=== PATIENT | male | born 1975 | race Caucasian/White ===

== ENCOUNTER 2017-11-18 13:54 | Inpatient (IN) ==
[2017-11-18 14:16] LABS: Basophils # 0.1 K/mcL (0.0-0.2); Basophils % 0.4 %; Eosinophils # 0.6 K/mcL (0.0-0.6); Hematocrit 50.9 % (37.5-50.1); Hemoglobin 17.2 g/dL (12.9-16.9); Immature Granulocytes % 0.6 % (0-4); Lymphocytes # 3.6 K/mcL (0.6-4.6); Lymphocytes % 31.3 %; Mean Corpuscular HGB Conc 33.8 g/dL (31.6-35.5); Mean Corpuscular Volume 91.7 fL (83.0-100.0); Mean Platelet Volume 10.4 fL (9.4-12.4); Monocytes # 0.7 K/mcL (0.0-1.3); Monocytes % 6.4 %; Neutrophils # 6.5 K/mcL (1.6-8.9); Platelet Count 290 K/mcL (140-400); Red Blood Count 5.55 M/mcL (4.19-5.50); Red Cell Distribution Width 13.2 % (11.5-14.5); Segmented Neutrophils % 56.3 %
[2017-11-18 14:22] LABS: Bilirubin,Urine Negative (Negative); Blood,Urine Negative (Negative); Clarity,Urine Clear (Clear); Color,Urine Yellow (Yellow); Glucose,Urine (UA) Normal (Normal); Ketones,Urine Negative (Negative); Leukocyte Esterase,Urine Negative (Negative); Nitrite,Urine Negative (Negative); PH,Urine 5.5 pH Units (5.0-8.0); Protein,Urine Negative (Neg-Trace); Specific Gravity,Urine 1.029 (1.010-1.025); Urobilinogen,Urine Normal (Normal)
[2017-11-18 14:28] LABS: Amphetamine Screen,Urine Negative ng/mL (Cutoff=1000); Barbiturate Screen,Urine Negative ng/mL (Cutoff=200); Benzodiazepines Screen,Urine Negative ng/mL (Cutoff=200); Cannabinoid Screen,Urine Negative ng/mL (Cutoff = 50); Cocaine Screen,Urine Negative ng/mL (Cutoff= 300); Opiate Screen,Urine Negative ng/mL (Cutoff=300); Phencyclidine Screen,Urine Negative ng/mL (Cutoff=25)
--- NOTE | 2017-11-18 14:28 | Emergency Department Note ---
Disposition Clinical Impression: Suicidal ideation, Homicidal ideation, Hallucination Depression Qualifiers: Depression Type: unspecified Qualified Code(s): F32.9 - Major depressive disorder, single episode, unspecified Disposition: Admitted As Inpatient Condition: Fair Time of Disposition: 17:18 Psych HPI - General Chief Complaint: ED Psychiatric Symptoms Stated Complaint: SI/HI Time Seen by Provider: 11/18/17 13:56 Source: patient Mode of arrival: ambulatory Limitations: no limitations Nursing Notes Reviewed: Yes Vital Signs Reviewed: Yes - History of Present Illness HPI Narrative: 42-year-old male with history of depression presents complaining of suicidal or homicidal ideations, he is having auditory hallucinations hearing voices that are telling him to kill his [employer]. Patient also stating that he has had suicidal ideation without a definitive plan, he was previous on depression medication but is noncompliant for about a year. He does not follow psychiatry has not previously been evaluated at a psychiatric hospital. Patient did call his sister, stated that he was upset she thinks is having "an emotional breakdown" he states is her voice in the past but never told anybody, lately the voices have been given him specific messages, he denies visual hallucinations. Denies compulsions. Denies fever, chills, headache, chest pain , abdominal pain. Pt complaint: suicidal ideation Onset (ago): minute(s) Duration: intermittent History of similar episodes: No Improves with: none Worsens with: none Alleged intoxication: No Associated Psychiatric Symptoms: suicidal ideation, homicidal ideation, auditory hallucinations Associated symptoms: Reports: denies other symptoms Traumatic symptoms: denies traumatic injury Treatments prior to arrival: none Self harm or harm to others: admits thoughts of self harm, admits thoughts of harming others - Related Data Home Medications Medication Instructions Recorded Confirmed No Known Home Drugs 11/18/17 11/18/17 Allergies Allergy/AdvReac Type Severity Reaction Status Date / Time acetaminophen [From Vicodin] Allergy Agitated Verified 08/22/16 08:09 aspirin Allergy Seizure Verified 08/22/16 08:09 hydrocodone [From Vicodin] Allergy Agitated Verified 08/22/16 08:09 morphine Allergy Anaphylaxis Verified 08/22/16 08:09 sulfamethoxazole Allergy Hives Verified 08/22/16 08:09 [From Bactrim] trimethoprim [From Bactrim] Allergy Hives Verified 08/22/16 08:09 All systems ED: reviewed and negative except as stated. Review of Systems: As Per HPI Constitutional: Denies: fever Eyes: Denies: eye pain ENT ED: Denies: ear pain Cardiovascular: Denies: chest pain Respiratory: Denies: cough Gastrointestinal: Denies: abdominal pain, nausea Genitourinary: Denies: urgency Musculoskeletal: Denies: back pain Integumentary: Denies: rash Neurological: Denies: headache Psychiatric: Reports: as per HPI, anxiety, depression, suicidal thoughts, homicidal thoughts, auditory hallucinations Endocrine: Denies: fatigue Hematological/Lymphatic: Denies: easy bleeding Past Medical History - Past Medical History Attestation: Yes The following information was validated with the patient. Source: patient Medical history: Reports: no medical history Psychiatric history: Reports: anxiety, depression - Social History Smoking Status: Current every day smoker Smokeless Tobacco Status: No Alcohol use: Reports: none Drug use: Reports: none Physical Exam - General Limitations: no limitations General appearance: alert, in no apparent distress - Head Head exam: atraumatic - Eye Eye exam: Present: normal appearance, PERRL - ENT ENT exam: normal exam, normal oropharynx - Neck Neck exam: Present: normal inspection - Chest Chest inspection: Present: normal inspection - Respiratory Respiratory exam: Present: normal lung sounds bilaterally. Absent: respiratory distress - Cardiovascular Cardiovascular exam: Present: regular rate, normal rhythm - Abdominal Exam Abdominal exam: Present: soft, Non-Tender - Extremities Exam Extremities exam: Present: normal inspection, full ROM - Neurological Exam Neurological exam: Present: alert, oriented X3, CN II-XII intact, normal gait. Absent: motor sensory deficit - Psychiatric Psychiatric exam: Present: depressed, flat affect, homicidal ideation, suicidal ideation Course Course Narrative: 42-year-old male with suicidal, homicidal ideations and auditory hallucinations with thoughts of killing his boss, hearing voices, the patient was placed on the 72 hour hold pink slipped, plan is for psychiatric evaluation for medical clearance. - Reevaluation(s) Reevaluation #1: he was medically cleared and evaluated by the psychiatric team, plan is for inpatient admission for hallucinations, likely psychosis, formation depressive disorder with psychotic features, the patient stable, pink slipped, admitted to psychiatry Dr. Montanez Time: 17:19 Vital Signs Temperature 97.6 F 11/18/17 13:56 Pulse Rate 83 11/18/17 13:56 Respiratory Rate 18 11/18/17 13:56 Blood Pressure 166/101 11/18/17 13:56 O2 Sat by Pulse Oximetry 97 11/18/17 13:56 Temperature 97.6 F 11/18/17 13:56 Pulse Rate 78 11/18/17 14:24 Respiratory Rate 18 11/18/17 14:24 Blood Pressure 118/92 11/18/17 14:24 O2 Sat by Pulse Oximetry 78 11/18/17 14:24 Oxygen Delivery Oxygen Delivery Room Air Psych - Differential Diagnosis Likely: acute psychosis, chronic psychiatric disease, suicidal ideation, bipolar disorder - Lab Data Lab results reviewed: Yes I reviewed the patient's lab results. Result diagrams: 11/18/17 14:09 11/18/17 14:09 Lab Results 11/18/17 11/18/17 11/18/17 Range/Units 14:09 14:09 14:10 WBC 11.6 H (4.3-11.1) K/mcL RBC 5.55 H (4.19-5.50) M/mcL Hgb 17.2 H (12.9-16.9) g/dL Hct 50.9 H (37.5-50.1) % MCV 91.7 (83.0-100.0) fL MCH 31.0 (28.0-33.3) pg MCHC 33.8 (31.6-35.5) g/dL RDW 13.2 (11.5-14.5) % Plt Count 290 (140-400) K/mcL MPV 10.4 (9.4-12.4) fL Immature Gran % 0.6 (0-4) % Seg Neutrophils % 56.3 % Lymphocytes % 31.3 % Monocytes % 6.4 % Eosinophils % 5.0 % Basophils % 0.4 % Neutrophils # 6.5 (1.6-8.9) K/mcL Lymphocytes # 3.6 (0.6-4.6) K/mcL Monocytes # 0.7 (0.0-1.3) K/mcL Eosinophils # 0.6 (0.0-0.6) K/mcL Basophils # 0.1 (0.0-0.2) K/mcL Sodium 136 (136-145) mEq/L Potassium 3.8 (3.5-5.1) mEq/L Chloride 106 (98-107) mEq/L Carbon Dioxide 21 L (23-29) mEq/L BUN 17 (6-20) mg/dL Creatinine 1.04 (0.70-1.30) mg/dL Est GFR ( Amer) > 60 (> 60) Est GFR (Non-Af Amer) > 60 (> 60) BUN/Creatinine Ratio 16 (6-26) Glucose 119 H (70-105) mg/dL Calculated Osmolality 285 (280-300) Calcium 9.5 (8.6-10.3) mg/dL Urine Color Yellow (Yellow) Urine Clarity Clear (Clear) Urine pH 5.5 (5.0-8.0) pH Units Ur Specific [place] 1.029 H (1.010-1.025) Urine Protein Negative (Neg-Trace) mg/dL Urine Glucose (UA) Normal (Normal) mg/dL Urine Ketones Negative (Negative) mg/dL Urine Blood Negative (Negative) Urine Nitrite Negative (Negative) Urine Bilirubin Negative (Negative) Urine Urobilinogen Normal (Normal) mg/dL Ur Leukocyte Esterase Negative (Negative) Salicylates < 5.0 L (15.0-30.0) mg/dL Urine Opiates Screen (Ekwnma=727) ng/mL Acetaminophen < 1.0 L (10-30) mcg/mL Ur Barbiturates Screen (Lokqvd=668) ng/mL Ur Phencyclidine Scrn (Cutoff=25) ng/mL Ur Amphetamines Screen (Xdixda=7991) ng/mL U Benzodiazepines Scrn (Dwlfog=347) ng/mL Urine Cocaine Screen (Cutoff= 300) ng/mL U Marijuana (THC) Screen (Cutoff = 50) ng/mL Ethyl Alcohol < 10 (0-10) mg/dL 11/18/17 Range/Units 14:10 WBC (4.3-11.1) K/mcL RBC (4.19-5.50) M/mcL Hgb (12.9-16.9) g/dL Hct (37.5-50.1) % MCV (83.0-100.0) fL MCH (28.0-33.3) pg MCHC (31.6-35.5) g/dL RDW (11.5-14.5) % Plt Count (140-400) K/mcL MPV (9.4-12.4) fL Immature Gran % (0-4) % Seg Neutrophils % % Lymphocytes % % Monocytes % % Eosinophils % % Basophils % % Neutrophils # (1.6-8.9) K/mcL Lymphocytes # (0.6-4.6) K/mcL Monocytes # (0.0-1.3) K/mcL Eosinophils # (0.0-0.6) K/mcL Basophils # (0.0-0.2) K/mcL Sodium (136-145) mEq/L Potassium (3.5-5.1) mEq/L Chloride (98-107) mEq/L Carbon Dioxide (23-29) mEq/L BUN (6-20) mg/dL Creatinine (0.70-1.30) mg/dL Est GFR ( Amer) (> 60) Est GFR (Non-Af Amer) (> 60) BUN/Creatinine Ratio (6-26) Glucose (70-105) mg/dL Calculated Osmolality (280-300) Calcium (8.6-10.3) mg/dL Urine Color (Yellow) Urine Clarity (Clear) Urine pH (5.0-8.0) pH Units Ur Specific [place] (1.010-1.025) Urine Protein (Neg-Trace) mg/dL Urine Glucose (UA) (Normal) mg/dL Urine Ketones (Negative) mg/dL Urine Blood (Negative) Urine Nitrite (Negative) Urine Bilirubin (Negative) Urine Urobilinogen (Normal) mg/dL Ur Leukocyte Esterase (Negative) Salicylates (15.0-30.0) mg/dL Urine Opiates Screen Negative (Wvbpbw=961) ng/mL Acetaminophen (10-30) mcg/mL Ur Barbiturates Screen Negative (Lamful=421) ng/mL Ur Phencyclidine Scrn Negative (Cutoff=25) ng/mL Ur Amphetamines Screen Negative (Gpxywj=0437) ng/mL U Benzodiazepines Scrn Negative (Yfwsxp=499) ng/mL Urine Cocaine Screen Negative (Cutoff= 300) ng/mL U Marijuana (THC) Screen Negative (Cutoff = 50) ng/mL Ethyl Alcohol (0-10) mg/dL Psychiatric Medical Clearance - Medical Clearance Checklist Does the patient have a NEW psychiatric condition?: Yes Any abnormalities indicating possible medical illness?: No Any history of medical issues?: No Medical History: Biceps muscle strain (Inactive) No Social History Section defined Any abnormal vital signs prior to transfer?: No Current Vitals: Last Vital Signs Temp 97.6 F 11/18/17 13:56 Pulse 78 11/18/17 14:24 Resp 18 11/18/17 14:24 BP 118/92 11/18/17 14:24 Pulse Ox 78 11/18/17 14:24 Is the patient intoxicated or cognitively impaired?: No Psychiatric Lab Panel: Drug Levels and Toxicity 11/18/17 11/18/17 14:09 14:10 Urine Opiates Screen Negative Acetaminophen < 1.0 L Ur Barbiturates Screen Negative Ur Phencyclidine Scrn Negative Ur Amphetamines Screen Negative U Benzodiazepines Scrn Negative Urine Cocaine Screen Negative U Marijuana (THC) Screen Negative Ethyl Alcohol < 10 Any abnormalities on the physical exam?: No Any abnormal labs?: No Abnormal Labs: Abnormal lab results WBC 11.6 K/mcL (4.3-11.1) H 11/18/17 14:09 RBC 5.55 M/mcL (4.19-5.50) H 11/18/17 14:09 Hgb 17.2 g/dL (12.9-16.9) H 11/18/17 14:09 Hct 50.9 % (37.5-50.1) H 11/18/17 14:09 Carbon Dioxide 21 mEq/L (23-29) L 11/18/17 14:09 Glucose 119 mg/dL (70-105) H 11/18/17 14:09 Ur Specific [place] 1.029 (1.010-1.025) H 11/18/17 14:10 Salicylates < 5.0 mg/dL (15.0-30.0) L 11/18/17 14:09 Acetaminophen < 1.0 mcg/mL (10-30) L 11/18/17 14:09 Does the patient require durable medical equiptment?: No Is the patient ambulatory?: Yes Is the patient a fall risk?: No Has the patient been medically cleared?: Yes Any acute medical condition require Tx prior to transfer?: No Statement of Medical Clearance: I have evaluated the patient, reviewed diagnostic information, and certify that the patient's medical condition is sufficiently stable that transfer to the psychiatric unit does not pose a significant risk of deterioration. Attestation Statement - Attestation Attestation: I, Viktor Nelson DO, examined this patient [id number] and my medical decision-making was reviewed with Dr. Mike Waldron, Resident Physician. I agree with the documented findings, disposition and treatment plan as described except to the extent set forth below. Please see my progress notes for details. 42-year-old male presents to emergency room with homicidal thoughts. Patient says a voices inside of his had been telling him to kill his old boss. He does not actively have a plan to kill himself. Patient does have plan to kill his boss. Patient has a psychiatric history that he has not been medicated for quite a long time. Vital signs were stable. Physical exam is unremarkable. Medical clearance to be completed at the request of the patient and the family. Patient will be seen by psychiatric team once workup is established. See detailed documentation of physical exam no medical intervention, medical decision-making and disposition and the resident physician's note. Patient does not require any medical intervention at this time we will continue monitor treatment course is completed 1644 Patient accepted to our facility for psychiatric evaluation.
[2017-11-18 14:35] LABS: Acetaminophen < 1.0 mcg/mL (10-30); Ethanol < 10 mg/dL (0-10); Salicylate < 5.0 mg/dL (15.0-30.0)
[2017-11-18 14:37] LABS: BUN/Creatinine Ratio 16 (6-26); Blood Urea Nitrogen 17 mg/dL (6-20); Calcium 9.5 mg/dL (8.6-10.3); Carbon Dioxide 21 mEq/L (23-29); Chloride 106 mEq/L (98-107); Glucose 119 mg/dL (70-105); Osmolality,Calculated 285 (280-300); Potassium 3.8 mEq/L (3.5-5.1); Sodium 136 mEq/L (136-145); eGFR For African Americans > 60 (> 60); eGFR For Non-African Americans > 60 (> 60)
[2017-11-18] MEDS ORDERED: Mag Hydrox/Al Hydrox/Simeth 30 ML UDC PO PRN (18:22)
[2017-11-18] MEDS ORDERED: MOM Conc 10 ML UD.LIQ PO PRN (18:22)
[2017-11-18] MEDS ORDERED: hydrOXYzine pamoate 25 MG CAPSULE PO PRN (18:22)
[2017-11-18] MEDS ORDERED: *HR* LORazepam 2 MG/ML VIAL IM PRN (18:22)
[2017-11-18] MEDS ORDERED: traZODone 50 MG TABLET PO PRN (18:22)
[2017-11-18] MEDS ORDERED: Haloperidol Lactate 5 MG/ML VIAL IM PRN (18:22)
[2017-11-18] MEDS ORDERED: *HR* LORazepam 1 MG TABLET PO PRN (18:22)
[2017-11-18] MEDS: Nicotine 21 MG PATCH.TD24 TD SCH (20:45)
[2017-11-19] MEDS: Nicotine 21 MG PATCH.TD24 TD SCH (08:42)
--- NOTE | 2017-11-19 15:55 | Psychiatry History & Physical ---
Date of Encounter: 11/19/17 Time of Encounter: 15:35 History of Present Illness Patient Stated Chief Complaint: "I've been under a lot of stress". Medicare Admission Attestation: For traditional Medicare patients the provided hospital inpatient services are reasonable and necessary and in the case of services not specified as inpatient -only under 42 CFR 419.22 (n), that they are appropriately provided as inpatient services in accordance 42 CFR 412.3. For Critical Access Hospital the patient may reasonably be expected to be discharged or transferred to a hospital within 96 hours after admission to the Critical Access Hospital. Admitted From: Emergency Dept Plans for Post Hospital Care: Home History of Present Illness: Mr. Henry is a 42 year old male patient comes in to talk to me for intake interview. I ask him what has been going on? He tells me "I have been under a lot of stress lately and I do not know how to deal with it". He tells me that he has been depressed. He states that he lost his job in August, than lost his unemployment benefits. It is currently under appeal and he has an interview Thursday, which he will probably win because he says his previous boss lied and he has proof. He believes he will get his benefits and money back. He has been having financial problems and getting behind on bills "which is not me". He states that he is feeling anxious not knowing how he is going to pay for things. This happened to him years ago when he tore his bicep tendon. He lost his truck and his house because of it. This brings back bad memories and makes him nervous again Yesterday, he found himself crying uncontrollably at his house and he could not stop. "This is not me. I laugh, I work hard, I have fun. This is not my life. It's like a bad dream". When asked about his symptoms of depression he says it started in August after he lost his job. He states that he does not have anybody to talk to express himself or to get his thoughts and emotions out. He has had angry thoughts of his old boss because "he took so much from me and he lied". He does acknowledge that he made a comment to the nurse in the emergency room that he was having thoughts about hurting his boss, but he stated that he was just talking off the cuff. When she asked him what he was thinking about when it came to hurting himself and anybody else. He states that he would never hurt himself or anybody else. He states that he has a son to live for, his and has a lot of responsibilities. But in general, loves life. He was just frustrated about his current situation and "spoutin off". He states that he has been feeling sad and angry for several months. He finds himself isolating now, not doing things that he used to like to do. "I am not motivated". Sometimes he feels hopeless and helpless, but he states he has things to live for in the future. he knows it will get better. He starts a new job on Thursday and his finances will get back on track. He had passive thoughts of suicide ' via by advertising copy writer' but states that he knows that is not reality and he would never do it because he has too much to live for. He reports his sleep is poor. He does not want medications secondary to having had them before when he got depressed from an arm injury from work, they made them feel worse. He states that he does feel anxious at times just like yesterday when he could not stop crying. He gets mildly paranoid thinking that people think less of him because of the situation in his life. He feels panicked. He denies any auditory or visual hallucinations. He denies any telepathy. He denies going days and days without sleep. He denies any hyper-sexual episodes. He denies any impulsivity. He denies any gambling issues. He tells me that he already feels better having come in to the hospital. He states that going to groups today and being able to talk, express what is going on in his life, that he does not feel all alone the feels hopeful. He thinks if he had an outpatient therapist or counselor to talk to, things would be much better. He said he tried to get one in the past, but the wait to get in to see a therapist was very long or no one would help him. He denies any suicidal/ homicidal ideation, intent or plan. He denies any homicidal fantasies are suicidal fantasies or intent. He is not hearing voices nor is he seeing things that are not there. He has no overt signs of psychosis. Past Med Surg Social Fam HX - Past Medical History Medical history: no medical history - Past Psychiatric History Psychiatric history: Reports: anxiety (Prescribed meds briefly from family doc after he injured his right arm and could not work.), depression (Short term Zoloft and Prozac use. + side effects. Stopped. Depression/anxiety resolved on it's own.) Past psychiatric history details: He had been placed on Prozac and Zoloft short term and had adverse side effects on both. He felt more depressed and very anxious on them Family psychiatric history: No Family History of Suicide: None - Social History Smoking Status: Current every day smoker Packs per day: 2ppd Smokeless Tobacco Status: No Alcohol use: none Drug use: none Occupational status: unemployed, other (Starting a new job on Thursday) Current living situation: Home - Independent Activity Level: Independent ambulation Recent Out of Country Travel Within the Last 8 Weeks: No Exposure or Possible Exposure to Illness During Travel: No Medications & Allergies No Known Home Drugs 11/18/17 [History] 3 Allergy/AdvReac Type Severity Reaction Status Date / Time acetaminophen [From Vicodin] Allergy Agitated Verified 08/22/16 08:09 aspirin Allergy Seizure Verified 08/22/16 08:09 hydrocodone [From Vicodin] Allergy Agitated Verified 08/22/16 08:09 morphine Allergy Anaphylaxis Verified 08/22/16 08:09 sulfamethoxazole Allergy Hives Verified 08/22/16 08:09 [From Bactrim] trimethoprim [From Bactrim] Allergy Hives Verified 08/22/16 08:09 Review of Systems Musculoskeletal: Reports: other (Right arm/tore off right bicep and nerve damage ) Mental Status Exam Patient orientation: Yes Person, Yes Time, Yes Place, Yes Circumstance Level of alertness: Alert Patient appearance: Appropriate, Well Groomed, Well-nourished Behavior: anxious Psychomotor activity: Normal Eye contact: Maintains Eye Contact Mood description: Anxious Affect description: congruent with mood Speech pattern: Normal rate, Normal rhythm, Normal tone Speech volume: Normal Thought process: Intact, Logical, Linear, Goal Oriented Thought content: Yes Intact, Yes Suicidal ideation, Yes Homicidal ideation ( Denies) Attention span: Capable of Focused Attention, Capable of Sustained Attention Memory description: Grossly Intact Patient reliability: Reliable Historian Intelligence estimate: Average Judgment: Fair Insight: Partial Exam - HEENT Head exam IM: Present: atraumatic Results - Vital Signs Vital signs: Temp Pulse Resp BP Pulse Ox 97.4 F L 76 16 112/74 78 11/19/17 09:00 11/19/17 09:00 11/19/17 09:00 11/19/17 09:00 11/18/17 14:24 - Labs Labs: Laboratory Last Values WBC 11.6 K/mcL (4.3-11.1) H 11/18/17 14:09 RBC 5.55 M/mcL (4.19-5.50) H 11/18/17 14:09 Hgb 17.2 g/dL (12.9-16.9) H 11/18/17 14:09 Hct 50.9 % (37.5-50.1) H 11/18/17 14:09 MCV 91.7 fL (83.0-100.0) 11/18/17 14:09 MCH 31.0 pg (28.0-33.3) 11/18/17 14:09 MCHC 33.8 g/dL (31.6-35.5) 11/18/17 14:09 RDW 13.2 % (11.5-14.5) 11/18/17 14:09 Plt Count 290 K/mcL (140-400) 11/18/17 14:09 MPV 10.4 fL (9.4-12.4) 11/18/17 14:09 Immature Gran % 0.6 % (0-4) 11/18/17 14:09 Seg Neutrophils % 56.3 % 11/18/17 14:09 Lymphocytes % 31.3 % 11/18/17 14:09 Monocytes % 6.4 % 11/18/17 14:09 Eosinophils % 5.0 % 11/18/17 14:09 Basophils % 0.4 % 11/18/17 14:09 Neutrophils # 6.5 K/mcL (1.6-8.9) 11/18/17 14:09 Lymphocytes # 3.6 K/mcL (0.6-4.6) 11/18/17 14:09 Monocytes # 0.7 K/mcL (0.0-1.3) 11/18/17 14:09 Eosinophils # 0.6 K/mcL (0.0-0.6) 11/18/17 14:09 Basophils # 0.1 K/mcL (0.0-0.2) 11/18/17 14:09 Sodium 136 mEq/L (136-145) 11/18/17 14:09 Potassium 3.8 mEq/L (3.5-5.1) 11/18/17 14:09 Chloride 106 mEq/L (98-107) 11/18/17 14:09 Carbon Dioxide 21 mEq/L (23-29) L 11/18/17 14:09 BUN 17 mg/dL (6-20) 11/18/17 14:09 Creatinine 1.04 mg/dL (0.70-1.30) 11/18/17 14:09 Est GFR ( Amer) > 60 (> 60) 11/18/17 14:09 Est GFR (Non-Af Amer) > 60 (> 60) 11/18/17 14:09 BUN/Creatinine Ratio 16 (6-26) 11/18/17 14:09 Glucose 119 mg/dL (70-105) H 11/18/17 14:09 Calculated Osmolality 285 (280-300) 11/18/17 14:09 Calcium 9.5 mg/dL (8.6-10.3) 11/18/17 14:09 Urine Color Yellow (Yellow) 11/18/17 14:10 Urine Clarity Clear (Clear) 11/18/17 14:10 Urine pH 5.5 pH Units (5.0-8.0) 11/18/17 14:10 Ur Specific [place] 1.029 (1.010-1.025) H 11/18/17 14:10 Urine Protein Negative mg/dL (Neg-Trace) 11/18/17 14:10 Urine Glucose (UA) Normal mg/dL (Normal) 11/18/17 14:10 Urine Ketones Negative mg/dL (Negative) 11/18/17 14:10 Urine Blood Negative (Negative) 11/18/17 14:10 Urine Nitrite Negative (Negative) 11/18/17 14:10 Urine Bilirubin Negative (Negative) 11/18/17 14:10 Urine Urobilinogen Normal mg/dL (Normal) 11/18/17 14:10 Ur Leukocyte Esterase Negative (Negative) 11/18/17 14:10 Salicylates < 5.0 mg/dL (15.0-30.0) L 11/18/17 14:09 Urine Opiates Screen Negative ng/mL (Dcrdua=773) 11/18/17 14:10 Acetaminophen < 1.0 mcg/mL (10-30) L 11/18/17 14:09 Ur Barbiturates Screen Negative ng/mL (Awsfis=056) 11/18/17 14:10 Ur Phencyclidine Scrn Negative ng/mL (Cutoff=25) 11/18/17 14:10 Ur Amphetamines Screen Negative ng/mL (Tteczw=7803) 11/18/17 14:10 U Benzodiazepines Scrn Negative ng/mL (Ndaudt=470) 11/18/17 14:10 Urine Cocaine Screen Negative ng/mL (Cutoff= 300) 11/18/17 14:10 U Marijuana (THC) Screen Negative ng/mL (Cutoff = 50) 11/18/17 14:10 Ethyl Alcohol < 10 mg/dL (0-10) 11/18/17 14:09 Assessment and Plan (1) Depression Current visit: Yes Status: Acute Plan: Admit inpatient for safety and stabilization, Close observation, Suicide Precautions per unit protocol, Encourage participation in unit milieu, Group Therapy, Monitor sleep Risks, benefits, side effects, alternatives discussed w /pt: Yes (He does not consent to medications) Patient agreeable to treatment: Yes (72 hour hold) Plans for Post Hospital Care: Home Estimated Length of Stay (Days): 5
[2017-11-20] MEDS: Nicotine 21 MG PATCH.TD24 TD SCH (08:51)
[2017-11-20 09:46] VITALS: BP 139/70
--- NOTE | 2017-11-20 11:10 | Discharge Summary ---
Date of Encounter: 11/20/17 Time of Encounter: 11:00 Diagnosis - Discharge Diagnosis (1) Depression Status: Acute Qualifiers: Depression Type: major depressive disorder Major depression recurrence: recurrent Active/Remission status: currently active Major depression episode severity: moderate Qualified Code(s): F33.1 - Major depressive disorder, recurrent, moderate Medications - Discharge Medications No Known Home Drugs 11/18/17 [History] 3 Allergy/AdvReac Type Severity Reaction Status Date / Time acetaminophen [From Vicodin] Allergy Agitated Verified 08/22/16 08:09 aspirin Allergy Seizure Verified 08/22/16 08:09 hydrocodone [From Vicodin] Allergy Agitated Verified 08/22/16 08:09 morphine Allergy Anaphylaxis Verified 08/22/16 08:09 sulfamethoxazole Allergy Hives Verified 08/22/16 08:09 [From Bactrim] trimethoprim [From Bactrim] Allergy Hives Verified 08/22/16 08:09 Provider Date of admission: 11/18/17 16:56 Primary care physician: PCP NONE Assessment and Plan - Patient/Caregiver Discharge Instructions Activity: resume usual activities as tolerated Diet: regular diet - Follow up Plan Follow up with: [facility] [Outside] - 11/30/17 8:00 am (The above appointment is with Bam Otero, miter sawyer, to establish you as a client. When you come to your first appointment, you will be completing paperwork, meeting with an miter sawyer, and developing a treatment plan. You will receive follow- up appointments for on-going mental health services, which could include community support, individual counseling, and/or groups. Please bring your insurance card, proof of income, social security number and photo ID to you first appointment. If you are unable to keep this appointment, 24 hour business notice of cancellation is expected. The above appointment(s) reflects first availability. You may contact the office regularly to check for cancellations that may allow you to be seen sooner.) Functional capacity at discharge: independent ambulation Overall status at discharge: Stable Disposition: Home, Self-Care Hospital Course Hospital course: Mr. Henry is a 42 year old male who was admitted for depression and having thoughts of hurting himself and others. He admitted to a history of depression and anxiety after being injured on the job and needing surgery/therapy years ago. He was placed on SSRI's and did not do well. His symptoms worsened and he ended up going off them. It eventually resolved. He is under a tremendous amount of stress now having been fired from his job in August and facing financial issues now. He found himself crying the day of his admission uncontrollably. When he came to the hospital, he was still angry and upset. He was asked about thoughts of hurting himself or others and talked about having thoughts of hurting his previous boss for firing him and cheating him out of his unemployment. Then having the shank tapper kill him; suicide by advertising copy writer. He acknowledges that he said that in anger and emotional state, he said these things, but would never do it. He felt better here after a day of having people to talk to a releasing those feels that he has held inside for all these months. He talked about not having anyone to talk to and he is afraid to tell his as he does not want to burden her and frighten her that they may lose their home and his truck if he can't pay the bills. He states he is not interested in taking medications because of his body's sensitivity to meds and his feeling so much better now releasing those emotions finally. He talks about never hurting himself or anyone else including his previous boss. "It would just be wrong and hurt so many other people; not something I would ever do." He is requesting mental health services to be set up for him in the community so he has a therapist to talk to so it does not happen again. He is starting a new job on Thursday and feels very positive about this. His is supportive and he has his son over the weekend and is looking forward to having him around. He denies SI/SIB/HI, A/V hallucination. He is not at imminent risk to himself or anyone else. His 72 hour legal hold is up today and he does not want to sign in voluntary. He does not meet criteria at this time to have a petition filed for involuntary treatment. He is being released as there is outpatient follow up scheduled for him and he is not a risk to himself or anyone else. Time spent discussing smoking cessation with patient: 3 to 10 minutes Does patient wish to continue nicotine replacement upon disc: No - Time Spent with Patient Total time spent providing and/or coordinating discharge services: 25 min Less than 30 minutes Quality - Multiple Antipsychotics Patient discharged on 2 or more antipsychotic medications: No Procedures - Procedures Procedures: Medication Management, Crisis Stabilization, Supportive Therapy, Group Therapy, Psychoeducational Therapy Mental Status Exam - Mental Status Exam Patient orientation: Yes Person, Yes Time, Yes Place, Yes Circumstance Level of alertness: Alert Patient appearance: Appropriate, Well Groomed, Well-nourished Behavior: calm Psychomotor activity: Normal Eye contact: Maintains Eye Contact Mood description: Euthymic/stable Affect description: congruent with mood Speech pattern: Normal rate, Normal rhythm, Normal tone Speech Volume: Normal Thought process: Intact, Logical, Linear, Goal Oriented Thought Content: Yes Intact Judgment: Good Insight: Full
== END 2017-11-20 11:55 | disposition home or self-care (01) | DRG 885 ==
LOC: EMEROO 13:54 → 1ANU 16:56
PROVIDERS: ADMIT Psychiatry & Neurology Psychiatry; ATTEND Psychiatry & Neurology Psychiatry